=== PATIENT | female | born 1975 | race Caucasian/White ===

== ENCOUNTER 2021-11-19 15:27 | Outpatient (CLI) | payer BC, SELFPAY ==
--- NOTE | 2021-11-19 15:45 | CRLHL7_ITS ---
For Patients: As a result of the Century Cures Act, medical imaging exams and procedure reports are released immediately into your electronic medical record. You may view this report before your referring provider. If you have questions, please contact your health care provider. BILATERAL MAMMOGRAM WITH COMPUTER-AIDED DETECTION AND TOMOSYNTHESIS TECHNIQUE: CC and MLO views were obtained. These mammographic images have been obtained using full-field digital technique. These mammographic images were interpreted with the benefit of computer-aided detection. Breast Tomosynthesis was used in this interpretation. COMPARISON FILM: 02/26/2019, 10/20/2016, 06/30/2015. FINDINGS: There are scattered areas of fibroglandular density IMPRESSION: There is no radiographic evidence for malignancy. ASSESSMENT: BI-RADS Category 1: Negative RECOMMENDATION: Routine screening mammogram in 1 year. A lay language report of this examination will be provided to the patient. Nathaniel Narayan M.D. Diagnostic Radiologist [email or web address] KO/Dictated by: Nathaniel Narayan MD @ 11/20/2021 10:08:00 AM (Electronically Signed)
== END 2021-11-19 15:28 | disposition home or self-care (01) ==
LOC: MAMMO 15:28
PROVIDERS: PCP Internal Medicine; Visit Provider Internal Medicine
DX: Z12.31 Encounter for screening mammogram for malignant neoplasm of breast (principal); R92.8 Other abnormal and inconclusive findings on diagnostic imaging of breast
CPT/HCPCS: 77063; 77067

== ENCOUNTER 2021-12-04 07:48 | Outpatient (CLI) | payer BC, SELFPAY ==
[2021-12-04 11:19] LABS: Albumin* 3.7 g/dL (3.3-5.0); Chloride* 101 mmol/L (96-114); Potassium* 3.8 mmol/L (3.6-5.1); Sodium* 136 mmol/L (135-149)
[2021-12-04 11:21] LABS: Cholesterol* 125 mg/dL (90-199); Creatinine* 0.6 mg/dL (0.5-1.5); Estimated Glomerular Filt Rate 111 ml/min
[2021-12-04 11:22] LABS: Alanine Aminotransferase* 59 U/L (4-35); Alkaline Phosphatase* 74 U/L (40-150); Aspartate Amino Transferase* 48 U/L (12-35); Bilirubin Total* 0.3 mg/dL (0.1-1.5); Blood Urea Nitrogen* 14 mg/dL (5-24); Carbon Dioxide* 28 mmol/L (20-32); Glucose* 162 mg/dL (60-115); Total Protein* 6.1 g/dL (6.0-8.3); Triglycerides* 91 mg/dL (40-149)
[2021-12-04 11:23] LABS: HDL Cholesterol* 44 mg/dL (>=50); LDL Cholesterol Calculated 63 mg/dL (<100)
[2021-12-04 11:32] LABS: Creatinine Urine 306.7 mg/dL
[2021-12-04 11:37] LABS: Microalbumin Creatinine Ratio 0 mg/g (0-30); Microalbumin Urine 2 mg/dL
== END 2021-12-04 07:49 | disposition home or self-care (01) ==
PROVIDERS: PCP Internal Medicine; Visit Provider Internal Medicine
DX: E11.9 Type 2 diabetes mellitus without complications (principal); I10 Essential (primary) hypertension; E66.9 Obesity, unspecified
CPT/HCPCS: 80053; 80061; 82043; 82570

== ENCOUNTER 2022-06-04 07:35 | Outpatient (CLI) | payer BC, SELFPAY ==
[2022-06-04 08:58] LABS: Albumin* 3.9 g/dL (3.3-5.0); Chloride* 104 mmol/L (96-114); Sodium* 138 mmol/L (135-149)
[2022-06-04 08:59] LABS: Potassium* 4.5 mmol/L (3.6-5.1)
[2022-06-04 09:00] LABS: Cholesterol* 131 mg/dL (90-199); Creatinine* 0.6 mg/dL (0.5-1.5); Estimated Glomerular Filt Rate 111 ml/min
[2022-06-04 09:01] LABS: Alanine Aminotransferase* 39 U/L (4-35); Alkaline Phosphatase* 74 U/L (40-150); Aspartate Amino Transferase* 32 U/L (12-35); Bilirubin Total* 0.7 mg/dL (0.1-1.5); Blood Urea Nitrogen* 15 mg/dL (5-24); Calcium* 9.3 mg/dL (8.4-10.6); Carbon Dioxide* 28 mmol/L (20-32); Glucose* 178 mg/dL (60-115); Total Protein* 6.5 g/dL (6.0-8.3); Triglycerides* 65 mg/dL (40-149)
[2022-06-04 09:02] LABS: HDL Cholesterol* 45 mg/dL (>=50); LDL Cholesterol Calculated 73 mg/dL (<100)
[2022-06-04 09:10] LABS: Creatinine Urine 193.3 mg/dL
[2022-06-04 09:14] LABS: Microalbumin Creatinine Ratio 0 mg/g (0-30); Microalbumin Urine 1 mg/dL
== END 2022-06-04 07:36 | disposition home or self-care (01) ==
LOC: NFLDREF 07:35
PROVIDERS: PCP Internal Medicine; Visit Provider Internal Medicine
DX: E11.9 Type 2 diabetes mellitus without complications (principal); E66.9 Obesity, unspecified; I10 Essential (primary) hypertension; Z13.6 Encounter for screening for cardiovascular disorders
CPT/HCPCS: 80053; 80061; 82043; 82570

== ENCOUNTER 2023-02-28 13:14 | Outpatient (CLI) | payer BC, SELFPAY ==
--- NOTE | 2023-02-28 13:20 | CRLHL7_ITS ---
For Patients: As a result of the Cures Act, medical imaging exams and procedure reports are released immediately into your electronic medical record. You may view this report before your referring provider. If you have questions, please contact your health care provider. BILATERAL SCREENING MAMMOGRAM WITH COMPUTER-AIDED DETECTION AND TOMOSYNTHESIS TECHNIQUE: CC and MLO views were obtained. These mammographic images have been obtained using full-field digital technique. These mammographic images were interpreted with the benefit of computer-aided detection. Breast Tomosynthesis was used in this interpretation. COMPARISON FILM: 11/19/21, 02/26/19, 07/04/15. FINDINGS: There are scattered areas of fibroglandular density IMPRESSION: There is no radiographic evidence for malignancy. ASSESSMENT: BI-RADS Category 1: Negative RECOMMENDATION: Routine screening mammogram in 1 year. A lay language report of this examination will be provided to the patient. ANGELA COBIAN M.D. Diagnostic/Nuclear Medicine Radiologist [email or web address] HANNAH:daryn Transcribed: 2:11 p.mHumberto stearns/Dictated by: Angela Cobian MD @ 03/01/2023 9:22:00 AM (Electronically Signed)
== END 2023-02-28 13:15 | disposition home or self-care (01) ==
LOC: MAMMO 13:15
PROVIDERS: PCP Internal Medicine; Visit Provider Internal Medicine
DX: Z12.31 Encounter for screening mammogram for malignant neoplasm of breast (principal)
CPT/HCPCS: 77063; 77067

== ENCOUNTER 2023-06-10 07:26 | Outpatient (CLI) | payer BC, SELFPAY ==
--- OUTSIDE RECORDS SUMMARY | 2023-06-14 20:39 | XMS_ITS | Continuity of Care Document ---
Author Name Unknown Organization [email or web address] Address [address] [facility] [address] [place] [address] Insurance Providers Payer Plan Claims Address Claims Phone Policy Number Group Number Relation Employer Guarantor Name Guarantor Guarantor Address Guarantor Phone [employer] 220G [employer] 220G [id number] Self Umm A Strain [address] [place] [id number] Blue Cross Blue Shield [employer] D [facility] [id number] [place] [address] tel:[phone] [phone] Self Umm A Strain [address] [place] [id number] Problems Condition ICD9 code ICD10 code SNOMED code Start Date End Date S tatus Encounter for screening for other metabolic disorders Z13.228 Type 2 diabetes mellitus without complications E11.9 Final Encounter for immunization Z23 Final Encounter for immunization Z23 Admitting Encounter for immunization Z23 Final Type 2 diabetes mellitus without complications E11.9 Final Encounter for screening mammogram for malignant neoplasm of breast Z12.31 Admitting Encounter for screening mammogram for malignant neoplasm of breast Z12.31 Final Type 2 diabetes mellitus without complications E11.9 Final Type 2 diabetes mellitus without complications E11.9 Admitting Results No Results Allergies, adverse reactions, alerts No known allergies and adverse reactions Medications No administered medications reported Vital Signs No vital signs reported Social History No smoking Hx information available
== END 2023-06-10 07:27 | disposition home or self-care (01) ==
LOC: NFLDREF 06-14 20:37
PROVIDERS: PCP Internal Medicine; Referring Provider Internal Medicine; Visit Provider Internal Medicine
DX: E11.9 Type 2 diabetes mellitus without complications (principal); Z79.84 Long term (current) use of oral hypoglycemic drugs
CPT/HCPCS: 80053; 80061; 82043; 82570

== ENCOUNTER 2023-12-09 07:30 | Outpatient (CLI) | payer BC, SELFPAY ==
--- OUTSIDE RECORDS SUMMARY | 2023-12-12 11:15 | XMS_ITS | Continuity of Care Document ---
Author Organization [facility] Address [address] [address] Insurance Providers Payer Plan Claims Address Claims Phone Policy Number Group Number Relation Employer Guarantor Name Guarantor Guarantor Address Guarantor Phone [employer] 220G [employer] [id number] [id number] Self Umm A Strain [address] [place] [address] Blue Cross Blue Shield [employer] D [facility] [id number] [place] [address] tel:[phone] [phone] [id number] [phone] Self Umm A Strain [address] [place] [id number] Problems Condition ICD9 code ICD10 code SNOMED [...] 2 diabetes mellitus without complications E11.9 Admitting Type 2 diabetes mellitus without complications E11.9 Final Pleurodynia R07.81 Final Type 2 diabetes mellitus without complications E11.9 Final Type 2 diabetes mellitus without complications E11.9 Admitting Results No Results Allergies, adverse reactions, alerts No known allergies and adverse reactions Medications No administered medications reported Vital Signs No vital signs reported Social History No smoking Hx information available
== END 2023-12-09 07:31 | disposition home or self-care (01) ==
LOC: NFLDREF 12-12 11:12
PROVIDERS: PCP Internal Medicine; Referring Provider Internal Medicine; Visit Provider Internal Medicine
DX: E11.9 Type 2 diabetes mellitus without complications (principal)
CPT/HCPCS: 82043; 82570

== ENCOUNTER 2024-10-12 13:30 | Outpatient (CLI) | payer BC, SELFPAY ==
--- NOTE | 2024-10-12 13:40 | CRLHL7_ITS ---
For Patients: As a result of the Century Cures Act, medical imaging exams and procedure reports are released immediately into your electronic medical record. You may view this report before your referring provider. If you have questions, please contact your health care provider. COMPARISON: 02/28/2023, 11/19/2021, 02/26/2019 TECHNIQUE: Digital mammogram in CC and MLO projections including computer-aided detection (CAD) and tomosynthesis. BREAST COMPOSITION: There are scattered areas of fibroglandular density. FINDINGS: No suspicious findings. ASSESSMENT: BI-RADS 1 Negative RECOMMENDATION: Annual screening mammogram. A lay language report of this examination will be provided to the patient. Dictated by: Nathaniel Narayan MD @ 10/22/2024 13:04:59 (Electronically Signed)
== END 2024-10-12 13:31 | disposition home or self-care (01) ==
LOC: MAMMO 13:30
PROVIDERS: PCP Internal Medicine; Visit Provider Internal Medicine
DX: Z12.31 Encounter for screening mammogram for malignant neoplasm of breast (principal)
CPT/HCPCS: 77063; 77067

== ENCOUNTER 2024-12-07 07:37 | Outpatient (CLI) | payer BC, SELFPAY | END 2024-12-07 07:38 | disposition home or self-care (01) | LOC: NFLDREF 12-08 18:55 | PROVIDERS: PCP Internal Medicine; Referring Provider Internal Medicine; Visit Provider Internal Medicine | DX: E11.29 Type 2 diabetes mellitus with other diabetic kidney complication (principal); R80.9 Proteinuria, unspecified | CPT/HCPCS: 80053; 80061; 82043; 82570 ==